=== PATIENT | female | born 1990 | race African-American/Black ===

== ENCOUNTER 2016-11-07 19:52 | Emergency (ER) | payer OTHER ==
[~2016-11-07] VITALS: Ht 167.6 cm; Wt 122.5 kg
--- NOTE | 2016-11-07 21:22 | ED INFLUENZA/URI COMPLAINT ---
History of Present Illness General Chief Complaint: Upper Respiratory Sx/Fever Stated Complaint: COUGH Source: patient, family Exam Limitations: no limitations Vital Signs & Intake/Output Vital Signs & Intake/Output Vital Signs Date Time Temp Pulse Resp B/P Pulse O2 O2 Flow FiO2 Ox Delivery Rate 11/08 2155 97.5 78 18 125/87 98 Room Air Room Air 11/08 2007 97.4 76 18 123/90 99 Room Air Allergies Coded Allergies: No Known Allergies (11/07/16) Reconcile Medications Amoxicillin/Potassium Clav (Augmentin 875-125 Tablet) 875 MG-125 MG TABLET 1 TAB PO BID bronchitis Benzonatate (Tessalon Perle) 100 MG CAPSULE 1-2 CAP PO TID cough Triage Note: PT TO TRIAGE WITH C/O COUGHING UP BLOOD SINCE 4PM. PT HAS BEEN SICK WITH COUGH AND CONGESTION FOR 1WEEK. ALSO PT REPORTS CHEST SORNESS, DENIES SOB, DENIES GI SYMPTOMS. VSS. Triage Nurses Notes Reviewed? yes Onset: Gradual Duration: day(s):, waxing and waning Timing: recent history Severity: mild, moderate Prior Episodes/Possible Cause: no prior episodes Modifying Factors: Improves With: rest. Worsens With: other (worse with coughing). Associated Symptoms: cough : No Patient currently breastfeeds: No HPI: 26yo woman, h/o cigarette smoking, works at pre-school, presents with cough x 1 week. This evening, she noticed that there was a small amount of blood with the cough. There was scant sputum. She has no fever, chills, wheezing, weight loss, weakness, dyspnea. She is otherwise well. She reports 2 -3 episodes, soon after sikhism this afternoon. Past History Travel History Traveled to [place] past 21 day No Medical History Any Pertinent Medical History? see below for history Cardiovascular: hypertension Surgical History Surgical History: none Psychosocial History What is your primary language Kenyan Tobacco Use: Current Daily Use Daily Tobacco Use Amount/Type: => 5 Cigarettes daily Family History Hx Contributory? No Review of Systems Review of Systems Constitutional: Reports: no symptoms. EENTM: Reports: no symptoms. Respiratory: Reports: no symptoms. Cardiovascular: Reports: no symptoms. GI: Reports: no symptoms. Genitourinary: Reports: no symptoms. Musculoskeletal: Reports: no symptoms. Skin: Reports: no symptoms. Neurological/Psychological: Reports: no symptoms. Hematologic/Endocrine: Reports: no symptoms. Immunologic/Allergic: Reports: no symptoms. All Other Systems: Reviewed and Negative Physical Exam Physical Exam General Appearance: well developed/nourished, no apparent distress, alert, comfortable Head: atraumatic, normal appearance Eyes: Bilateral: normal appearance. Ears, Nose, Throat: normal ENT inspection, moist mucous membrane, hearing grossly normal, Tympanic normal, pharynx normal, nasal congestion Neck: normal inspection, supple, full range of motion Respiratory: normal breath sounds, chest non-tender, no respiratory distress, quiet respiration, lungs clear Cardiovascular: regular rate/rhythm Gastrointestinal: normal bowel sounds, soft, non-tender, no organomegaly Back: normal inspection, normal range of motion Extremities: normal inspection, normal capillary refill Neurologic/Psych: no motor/sensory deficits, awake, alert, oriented x 3 Skin: intact, normal color, warm/dry Core Measures Severe Sepsis Present: No Septic Shock Present: No Progress Differential Diagnosis: bronchitis vs other Plan of Care: see below. Initial ED EKG: none Departure Departure Disposition: HOME OR SELF CARE Condition: Stable Clinical Impression Primary Impression: Bronchitis Secondary Impressions: Hemoptysis Referrals: OSMEL JONES MD (PCP/Family) Departure Forms: Customer Survey General Discharge Information Prescriptions: Current Visit Scripts Amoxicillin/Potassium Clav (Augmentin 875-125 Tablet) 1 TAB PO BID #20 TAB Benzonatate (Tessalon Perle) 1-2 CAP PO TID #30 CAP Ref 1 Comments 11/07/16, 21:30... discussed at length with patient. I offered a cxr and further evaluation, mindul of risks and benefits. She declines, prefering to take trial of antibiotics. She will return to the ED or see her primary care physician if not improving in 24 hours.
[2016-11-07] MEDS ORDERED: AUGMENTIN 875-1 EACH PO (21:39)
[2016-11-07] MEDS ORDERED: TESSALON PERLE100 M1 PO (21:39)
[2016-11-07 21:56] VITALS: BP 125/87
== END 2016-11-07 21:56 ==
LOC: ERH 19:52
DX: J40 Bronchitis, not specified as acute or chronic (principal); F17.210 Nicotine dependence, cigarettes, uncomplicated